=== PATIENT | female | born 1955 | race Caucasian/White ===

== ENCOUNTER → 2016-12-30 | Outpatient (CLI) | payer OTHER ==
[~2016-12-30] MED LIST: CLARITIN10 MG PO; ESTROGEN PATCH; ETOLDOLAC400 MG PO; PREVACID 30MG30 M1 PO; SYNTHROID0.1 MG PO
== END ==
LOC: MC.RAD 07:00
DX: Z12.31 Encounter for screening mammogram for malignant neoplasm of breast (principal)

== ENCOUNTER → 2018-02-26 | Outpatient (CLI) | payer OTHER | LOC: MC.RAD 08:57 | DX: Z12.31 Encounter for screening mammogram for malignant neoplasm of breast (principal) ==

== ENCOUNTER → 2019-01-06 | Outpatient (CLI) | payer OTHER | LOC: COL.RAD 09:21 | DX: Z01.812 Encounter for preprocedural laboratory examination (principal); K50.111 Crohn's disease of large intestine with rectal bleeding; K57.30 Diverticulosis of large intestine without perforation or abscess without bleeding | CPT/HCPCS: Q9967 ==

== ENCOUNTER → 2019-04-21 | Outpatient (CLI) | payer OTHER | LOC: MC.RAD 07:00 | DX: Z12.31 Encounter for screening mammogram for malignant neoplasm of breast (principal) ==

== ENCOUNTER → 2020-04-26 | Outpatient (CLI) | payer OTHER | LOC: MC.RAD 07:30 | DX: Z12.31 Encounter for screening mammogram for malignant neoplasm of breast (principal) ==

== ENCOUNTER → 2020-08-23 | Outpatient (CLI) | payer OTHER | LOC: COL.LAB 07:26 | DX: K50.111 Crohn's disease of large intestine with rectal bleeding (principal) ==

== ENCOUNTER → 2021-05-01 | Outpatient (CLI) | payer OTHER | LOC: MC.RAD 10:05 | DX: Z12.31 Encounter for screening mammogram for malignant neoplasm of breast (principal) ==